=== PATIENT | female | born 1950 | race Caucasian/White ===

== ENCOUNTER 2017-11-25 06:28 | Day surgery (SDC) | payer MEDICARE, OTHER ==
[~2017-11-25] VITALS: Ht 152.4 cm; Wt 62.7 kg
[~2017-11-25 06:28] MED LIST: ACET-66 PO; ASPI81TA87 PO; CALC-1038 PO; CHOL200078 PO; GABA-529 PO; LISI5TAB PO; METO5TAB2 PO; MONT10TA21 PO; OMEP20CA10 PO; SUMA50TA17 PO
[2017-11-25] MEDS ORDERED: LIDOCAINE HCL 2% 5 ML JELLY TP ONE (06:29)
[2017-11-25] MEDS ORDERED: BENZOCAINE 20% 50 MCG/SPRAY 57 GM TP ONE (06:29)
[2017-11-25] MEDS ORDERED: SODIUM CHLORIDE 0.9% 1,000 ML IV ONE ×2 (06:30→07:00)
[2017-11-25] MEDS ORDERED: RINGERS SOLUTION,LACTATED 0 ML IV ONE (06:58)
[2017-11-25] MEDS ORDERED: MIDAZOLAM HCL 2 MG/2 ML VIAL ONE (08:13)
[2017-11-25] MEDS ORDERED: FentaNYL CITRATE-PF 100 MCG/2 ML VIAL ONE (08:13)
[2017-11-25] MEDS ORDERED: MethylPREDNISolone SOD SUCC 125 MG/2 ML VIAL IVP ONE (09:00)
[2017-11-25] MEDS ORDERED: MethylPREDNISolone SOD SUCC 125 MG/2 ML VIAL ONE (09:16)
[2017-11-25] MEDS ORDERED: OXYGEN THERAPY IH SCH (20:00)
== END 2017-11-25 10:20 | disposition home or self-care (01) ==
LOC: SURGERY 06:28
PROVIDERS: ATTEND Internal Medicine Critical Care Medicine
DX: J38.4 Edema of larynx (principal); B37.0 Candidal stomatitis; J84.111 Idiopathic interstitial pneumonia, not otherwise specified; G43.909 Migraine, unspecified, not intractable, without status migrainosus; M19.90 Unspecified osteoarthritis, unspecified site; I10 Essential (primary) hypertension; J45.998 Other asthma; Z90.2 Acquired absence of lung [part of]; Z90.710 Acquired absence of both cervix and uterus; Z88.0 Allergy status to penicillin; Z88.2 Allergy status to sulfonamides; Z79.82 Long term (current) use of aspirin; Z98.890 Other specified postprocedural states; Z79.899 Other long term (current) drug therapy
CPT/HCPCS: 31623; 31624; 71045; 87015; 87070; 87205; 87220; 88108; 88184; 88185; 88312; J2250; J2930; J3010; J7030; J7120